=== PATIENT | male | born 1970 | race Caucasian/White ===

== ENCOUNTER 2017-01-06 13:47 | Emergency (ER) | payer OTHER ==
[~2017-01-06] VITALS: Wt 127.0 kg
[~2017-01-06 13:47] MED LIST: CYMBALTA60 MG PO; HYDROCODONE BIT1 T11 PO; MOTRIN800 MG PO; NABUMETONE500 M2 PO; NAPROSYN500 MG PO; NEURONTIN800 MG PO; NORFLEX100 MG PO
[2017-01-06] MEDS ORDERED: REXULTI1 MG PO (13:53)
[2017-01-06] MEDS ORDERED: KLONOPIN1 M1 PO (13:53)
[2017-01-06] MEDS ORDERED: HYDROCODONE BIT1 T11 PO (15:22)
== END 2017-01-06 14:49 | disposition home or self-care (01) ==
LOC: ED 13:47
DX: S99.922A Unspecified injury of left foot, initial encounter (principal); M54.32 Sciatica, left side; R20.8 Other disturbances of skin sensation; Z79.899 Other long term (current) drug therapy; W11.XXXA Fall on and from ladder, initial encounter; Y93.9 Activity, unspecified; Y92.89 Other specified places as the place of occurrence of the external cause; Y99.9 Unspecified external cause status

== ENCOUNTER 2017-08-22 14:17 | Emergency (ER) | payer OTHER ==
[~2017-08-22] VITALS: Ht 187.9 cm; Wt 113.4 kg
[~2017-08-22 14:17] MED LIST changes: +KLONOPIN1 M1 PO; +REXULTI1 MG PO
[2017-08-22] MEDS ORDERED: PERCOCET 5-3251 EACH PO (14:52)
== END 2017-08-22 14:50 | disposition home or self-care (01) ==
LOC: ED 14:17
DX: M54.2 Cervicalgia (principal); Z79.899 Other long term (current) drug therapy; V59.88XA Occupant (driver) (passenger) of pick-up truck or van injured in other specified transport accidents, initial encounter; Y93.89 Activity, other specified; Y92.89 Other specified places as the place of occurrence of the external cause; Y99.8 Other external cause status

== ENCOUNTER 2017-11-03 12:57 | Emergency (ER) | payer BC, OTHER ==
[~2017-11-03] VITALS: Ht 187.9 cm; Wt 106.6 kg
[~2017-11-03 12:57] MED LIST changes: +PERCOCET 5-3251 EACH PO
[2017-11-03] MEDS ORDERED: NEURONTIN300 MG PO (13:24)
[2017-11-03 13:52] LABS: BASO # 0.1 10*3/uL (0.0-0.1); BASO % 1.4 % (0.0-1.0); EOS # 0.2 10*3/uL (0.0-0.4); EOS % 3.1 % (1.0-4.0); HEMATOCRIT 36.1 % (42.0-52.0); HEMOGLOBIN 11.5 g/dl (14.0-18.0); LYMPH # 1.4 10*3/uL (1.3-4.4); LYMPH % 28.5 % (27.0-41.0); MEAN CELL VOLUME 90.3 fl (80.0-94.0); MEAN CORPUSCULAR HGB 28.8 pg (27.0-31.0); MEAN CORPUSCULAR HGB CONC 31.9 g/dl (33.0-37.0); MEAN PLATELET VOLUME 8.4 fl (9.6-12.3); MONO # 0.9 10*3/uL (0.1-1.0); MONO % 17.9 % (3.0-9.0); NEUT # 2.4 10*3/uL (2.3-7.9); NEUT % 48.5 % (47.0-73.0); PLATELET COUNT AUTOMATED 540 10*3/uL (130-400); RED CELL DISTRI WIDTH 14.2 % (0-14.5); WHITE BLOOD COUNT 4.9 10*3/uL (4.8-10.8)
[2017-11-03 14:09] LABS: ALBUMIN 3.4 gm/dl (3.1-4.5); ALKALINE PHOSPHATASE 123 U/L (45-117); BUN 11 mg/dl (7-24); CHLORIDE 99 mmol/L (98-107); CREATININE 1.08 mg/dL (0.70-1.30); POTASSIUM 4.2 mmol/L (3.5-5.1); SGOT/AST 52 IU/L (3-35); SGPT/ALT 54 U/L (12-78); SODIUM 134 mmol/L (136-145); TOTAL PROTEIN 7.4 gm/dL (6.4-8.2)
[2017-11-03 15:40] LABS: BILIRUBIN NEGATIVE (NEGATIVE); BLOOD 3+ (NEGATIVE); CLARITY SL CLOUDY (CLEAR); COLOR YELLOW (YELLOW); GLUCOSE NEGATIVE (NEGATIVE); KETONE NEGATIVE (NEGATIVE); LEUKO ESTERASE NEGATIVE (NEGATIVE); NITRITE NEGATIVE (NEGATIVE); SPECIFIC GRAVITY 1.025 (1.005-1.030); UROBILINOGEN 0.2 E.U./dl (0.2-1.0)
[2017-11-03 15:46] LABS: BACTERIA 1+; MUCOUS 1+
[2017-11-03 15:47] LABS: EPITHELIAL CELLS 0-2; RBC 21-30 rbc/hpf (0-2)
== END 2017-11-03 18:38 | disposition home or self-care (01) ==
LOC: ED 12:57
PROVIDERS: Nurse Practitioner Family
DX: R10.31 Right lower quadrant pain (principal); G89.29 Other chronic pain; Z98.890 Other specified postprocedural states; Z79.899 Other long term (current) drug therapy; Z90.5 Acquired absence of kidney

== ENCOUNTER 2018-03-16 14:47 | Emergency (ER) | payer BC, OTHER ==
[~2018-03-16] VITALS: Ht 187.9 cm; Wt 113.4 kg
[~2018-03-16 14:47] MED LIST changes: +NEURONTIN300 MG PO
[2018-03-16 15:46] LABS: URINE AMPHETAMINES < 1000 (1000ng/ml); URINE BARBITURATES < 200 (200ng/ml); URINE BENZODIAZEPINES < 200 (200ng/ml); URINE CANNABINOIDS (THC) < 50 (50ng/ml); URINE COCAINE < 300 (300ng/ml); URINE METHADONE < 300 (300ng/ml); URINE OPIATES < 300 (300ng/ml)
[2018-03-16 15:47] LABS: URINE PHENCYCLIDINE < 25 (25ng/ml)
[2018-03-16 16:36] LABS: BASO # 0.1 10*3/uL (0.0-0.1); BASO % 0.7 % (0.0-1.0); EOS # 0.1 10*3/uL (0.0-0.4); EOS % 1.3 % (1.0-4.0); HEMATOCRIT 44.6 % (42.0-52.0); HEMOGLOBIN 14.4 g/dl (14.0-18.0); LYMPH # 2.2 10*3/uL (1.3-4.4); LYMPH % 20.9 % (27.0-41.0); MEAN CELL VOLUME 86.1 fl (80.0-94.0); MEAN CORPUSCULAR HGB 27.8 pg (27.0-31.0); MEAN CORPUSCULAR HGB CONC 32.3 g/dl (33.0-37.0); MEAN PLATELET VOLUME 8.8 fl (9.6-12.3); MONO % 9.5 % (3.0-9.0); NEUT # 6.9 10*3/uL (2.3-7.9); NEUT % 67.2 % (47.0-73.0); PLATELET COUNT AUTOMATED 327 10*3/uL (130-400); RED BLOOD COUNT 5.18 10*6/uL (4.50-5.90); RED CELL DISTRI WIDTH 14.3 % (0-14.5); WHITE BLOOD COUNT 10.3 10*3/uL (4.8-10.8)
[2018-03-16 16:51] LABS: ALBUMIN 4.1 gm/dl (3.1-4.5); ALKALINE PHOSPHATASE 90 U/L (45-117); BUN 12 mg/dl (7-24); CHLORIDE 106 mmol/L (98-107); CREATININE 1.23 mg/dL (0.70-1.30); POTASSIUM 3.8 mmol/L (3.5-5.1); SGOT/AST 11 IU/L (3-35); SGPT/ALT 25 U/L (12-78); SODIUM 140 mmol/L (136-145); TOTAL PROTEIN 7.9 gm/dL (6.4-8.2)
== END 2018-03-16 17:24 | disposition short-term general hospital (02) ==
LOC: ED 14:47
PROVIDERS: Nurse Practitioner
DX: S91.341A Puncture wound with foreign body, right foot, initial encounter (principal); Z98.890 Other specified postprocedural states; Z79.899 Other long term (current) drug therapy; W22.8XXA Striking against or struck by other objects, initial encounter; Y93.01 Activity, walking, marching and hiking; Y92.89 Other specified places as the place of occurrence of the external cause; Y99.9 Unspecified external cause status

== ENCOUNTER 2018-03-21 11:15 | Emergency (ER) | payer SELFPAY ==
[~2018-03-21] VITALS: Ht 187.9 cm; Wt 113.4 kg
--- NOTE | ~2018-03-21 | EKG ---
[place], [place] ELECTROCARDIOGRAM REPORT NAME: YAMILETH GERBER UNIT #: [id number] ROOM: DOCTOR: CORBIN VENTURA MD BIRTHDATE: [birth year] DOS: 03/21/2018 TIME: 1513 hours. FINDINGS: 1. Normal sinus rhythm at 90 beats per minute. 2. The tracing is normal. 3. No previous tracing is available for comparison. CORBIN VENTURA MD CM:EKGRPT:ELECTROCARDIOGRAM REPORT [id number] CORBIN VENTURA MD
[2018-03-21 11:47] LABS: BASO # 0.1 10*3/uL (0.0-0.1); BASO % 0.9 % (0.0-1.0); EOS # 0.2 10*3/uL (0.0-0.4); EOS % 2.8 % (1.0-4.0); HEMATOCRIT 43.8 % (42.0-52.0); HEMOGLOBIN 13.8 g/dl (14.0-18.0); LYMPH # 1.8 10*3/uL (1.3-4.4); LYMPH % 27.1 % (27.0-41.0); MEAN CELL VOLUME 88.5 fl (80.0-94.0); MEAN CORPUSCULAR HGB 27.9 pg (27.0-31.0); MEAN CORPUSCULAR HGB CONC 31.5 g/dl (33.0-37.0); MEAN PLATELET VOLUME 8.8 fl (9.6-12.3); MONO # 0.6 10*3/uL (0.1-1.0); MONO % 9.1 % (3.0-9.0); NEUT % 59.5 % (47.0-73.0); PLATELET COUNT AUTOMATED 331 10*3/uL (130-400); RED BLOOD COUNT 4.95 10*6/uL (4.50-5.90); RED CELL DISTRI WIDTH 14.2 % (0-14.5); WHITE BLOOD COUNT 6.8 10*3/uL (4.8-10.8)
[2018-03-21 12:01] LABS: ALBUMIN 4.1 gm/dl (3.1-4.5); ALKALINE PHOSPHATASE 103 U/L (45-117); BUN 13 mg/dl (7-24); CHLORIDE 100 mmol/L (98-107); CREATININE 1.07 mg/dL (0.70-1.30); POTASSIUM 3.9 mmol/L (3.5-5.1); SGOT/AST 23 IU/L (3-35); SGPT/ALT 27 U/L (12-78); SODIUM 138 mmol/L (136-145); TOTAL PROTEIN 7.8 gm/dL (6.4-8.2)
[2018-03-21 12:02] LABS: ETHYL ALCOHOL < 3.0 mg/dl (<3)
[2018-03-21] MEDS ORDERED: SONATA10 MG PO (12:02)
[2018-03-21 12:04] LABS: BILIRUBIN NEGATIVE (NEGATIVE); BLOOD NEGATIVE (NEGATIVE); CLARITY CLEAR (CLEAR); COLOR YELLOW (YELLOW); GLUCOSE NEGATIVE (NEGATIVE); KETONE NEGATIVE (NEGATIVE); LEUKO ESTERASE NEGATIVE (NEGATIVE); NITRITE NEGATIVE (NEGATIVE); PH 6.5 (5.0-9.0); SPECIFIC GRAVITY <= 1.005 (1.005-1.030); UROBILINOGEN 0.2 E.U./dl (0.2-1.0)
[2018-03-21] MEDS ORDERED: ATIVAN1 MG PO (12:04)
[2018-03-21] MEDS ORDERED: QUINAPRIL20 MG PO (12:04)
[2018-03-21] MEDS ORDERED: LOPRESSOR50 M1 PO (12:06)
[2018-03-21] MEDS ORDERED: OXYCODONE5 M1 PO (12:08)
[2018-03-21] MEDS ORDERED: VICODIN 5-3001 EACH PO (12:09)
[2018-03-21 12:10] LABS: BACTERIA TRACE; EPITHELIAL CELLS 0-2; RBC 0-2 rbc/hpf (0-2); WBC 0-2 wbc/hpf (0-5)
[2018-03-21 12:12] LABS: URINE AMPHETAMINES < 1000 (1000ng/ml); URINE BARBITURATES < 200 (200ng/ml); URINE BENZODIAZEPINES < 200 (200ng/ml); URINE CANNABINOIDS (THC) < 50 (50ng/ml); URINE COCAINE < 300 (300ng/ml); URINE METHADONE < 300 (300ng/ml); URINE OPIATES > 300 (300ng/ml)
[2018-03-21 12:17] LABS: URINE PHENCYCLIDINE < 25 (25ng/ml)
[2018-03-21] MEDS ORDERED: XARE20MG PO (12:23)
[2018-03-21 17:48] LABS: ACT PARTIAL THROMBO TIME 25.9 SECONDS (20.8-31.5)
== END 2018-03-21 22:41 | disposition home health service (06) ==
LOC: ED 11:15
PROVIDERS: Emergency Medicine
DX: F32.9 Major depressive disorder, single episode, unspecified (principal); F41.9 Anxiety disorder, unspecified; R45.851 Suicidal ideations; F11.10 Opioid abuse, uncomplicated; Z98.890 Other specified postprocedural states; Z79.899 Other long term (current) drug therapy; Z79.01 Long term (current) use of anticoagulants; Z86.711 Personal history of pulmonary embolism

== ENCOUNTER 2018-11-24 14:02 | Emergency (ER) | payer OTHER ==
[~2018-11-24] VITALS: Ht 182.8 cm; Wt 122.5 kg
[~2018-11-24 14:02] MED LIST changes: +ATIVAN1 MG PO; +LOPRESSOR50 M1 PO; +OXYCODONE5 M1 PO; +QUINAPRIL20 MG PO; +SONATA10 MG PO; +VICODIN 5-3001 EACH PO; +XARE20MG PO
== END 2018-11-24 16:35 | disposition home or self-care (01) ==
LOC: ED 14:02
DX: S93.492A Sprain of other ligament of left ankle, initial encounter (principal); Z98.890 Other specified postprocedural states; Z79.899 Other long term (current) drug therapy; X50.1XXA Overexertion from prolonged static or awkward postures, initial encounter; Y93.02 Activity, running; Y92.69 Other specified industrial and construction area as the place of occurrence of the external cause; Y99.9 Unspecified external cause status